=== PATIENT | female | born 1985 | race Caucasian/White ===

== ENCOUNTER → 2023-10-23 | Outpatient (CLI) | payer BC, SELFPAY ==
--- NOTE | 2023-10-23 13:32 | US_ITS ---
ULTRASOUND GUIDED CORE BIOPSY REASON FOR EXAM: Female, 38 years old. ABN MAMM PERTINENT HISTORY: Abnormal mammogram and ultrasound of the right breast. COMPARISON: None. TECHNIQUE: (All elements of maximal sterile barrier technique followed, including US elements as applicable) Upon arrival to the breast imaging department the patient''s identification was confirmed and the RIGHT breast was marked according to time-out protocol. Ultrasound guided core biopsy and clip placement, to include potential risks and complications, was explained in full to the patient. Written and verbal consent were obtained prior to initiation of the procedure. The RIGHT breast was prepped and draped in standard sterile fashion and local anesthesia was obtained with 1% buffered lidocaine. A small dermatotomy was then made to introduce the core biopsy needle. Under ultrasound guidance multiple core samples were obtained with a 13 gauge needle and submitted in formalin for pathology. A titanium clip was then deployed into the biopsy cavity under ultrasound guidance. Upon completion of the procedure hemostasis was obtained and sterile dressing was applied. The patient tolerated the entire procedure without immediate complication and was discharged from the breast imaging department in good condition. IMPRESSION: Ultrasound guided core biopsy of a mass in the RIGHT breast at 2:00 position the breast at 4 cm from the nipple. without complication. On the subsequent mammogram, a tissue clip marker is seen at the biopsy site. The previously seen nodule has decreased in size. Electronically Signed: Kwame Arguello MD at 15:46 EDT , ULTRASOUND GUIDED CORE BIOPSY REASON FOR EXAM: Female, 38 years old. ABN MAMM PERTINENT HISTORY: Abnormal screening mammogram. COMPARISON: None. TECHNIQUE: (All elements of maximal sterile barrier technique followed, including US elements as applicable) Upon arrival to the breast imaging department the patient''s identification was confirmed and the RIGHT breast was marked according to time-out protocol. Ultrasound guided core biopsy and clip placement, to include potential risks and complications, was explained in full to the patient. Written and verbal consent were obtained prior to initiation of the procedure. The RIGHT breast was prepped and draped in standard sterile fashion and local anesthesia was obtained with 1% buffered lidocaine. A small dermatotomy was then made to introduce the core biopsy needle. Under ultrasound guidance multiple core samples were obtained with a gauge needle and submitted in formalin for pathology. A titanium clip was then deployed into the biopsy cavity under ultrasound guidance. Upon completion of the procedure hemostasis was obtained and sterile dressing was applied. The patient tolerated the entire procedure without immediate complication and was discharged from the breast imaging department in good condition. US/US Breast Biopsy 1st Lesion IMPRESSION: Ultrasound guided core biopsy of a mass in the RIGHT breast at 10:00 position of the breast at 7 cm from the nipple. without complication. A tissue clip marker is seen at the biopsy site. Electronically Signed: Kwame Arguello MD at 15:47 EDT ,
--- NOTE | 2023-10-23 14:16 | BR_PTH ---
PATIENT: ZULLY TURK LOC: OPUS U#:[id number] AGE/SX: 38/F ROOM: RE10/23/[address]: Dr. Joselyn Strickland MD : 1985 BED: DIS: 10/23/2023 SPEC #: [id number] RECD: 10/23/23 15:24 STATUS: GOPAL REBalta #: [id number] REBECA: 10/23/23 14:[address]: Joselyn Strickland DEPT: SURGICAL PATHOLOGY RECD BY: Laverne Hickey ENTERED: 10/24/23 07:58 SP TYPE: MAMOPLASTY OTHR DR: Lorie Zarco PA-C Tissues: A - Right breast, NOS B - Left breast, NOS Procedures: Surgery Specimen Level IV HEADER OPERATION: Right breast biopsyx2 PRE-OP DIAGNOSIS: Right breast mass x2 TISSUE SUBMITTED: A. right breast mass 2 o'clock 4cm from the nipple, B. Right breast mass 10 o'clock 7cm from the nipple MICROSCOPIC DIAGNOSIS A. Right breast mass at 2 o'clock, biopsy; Fibroadenoma. B. Right breast mass at 10 o'clock, biopsy; Fibroadenoma. / 10/25/2023 MICROSCOPIC DESCRIPTION Slides are reviewed. GROSS DESCRIPTION A. Received in fixative is one container labeled with the patient's name and designated Right breast mass 2 o'clock biopsy. The specimen consists of multiple irregular fragments of earl-yellow fibroadipose tissue that in aggregate measure 1.5 x 1.5 x 0.1 cm. The specimen is totally submitted in one cassette. B. Received in fixative is one container labeled with the patient's name and designated Right breast mass 10 o'clock biopsy. The specimen consists of multiple elongated fragments of earl-yellow fibroadipose tissue that in aggregate measure 1.5 x 1.0 x 0.1 cm. The specimen is totally submitted in one cassette. / 10/24/2023 TC:5 CPT: 87474p6
--- NOTE | 2023-10-23 14:31 | OP.PCM_ITS ---
Report of Operation Date of Procedure: 10/23/23 Pre-Operative Diagnosis: right breast mass x 2 Post-Operative Diagnosis: same Surgery/Procedure Performed:: US guided right breast biopsy x 2 Surgeon: Joselyn Strickland Type of Anesthesia: Local Specimen's removed: 1. Right breast mass 2:00 4 cm from from the nipple, #2 right breast mass 10:00 7 cm from the nipple Estimated Blood Loss (mL): < 10 cc Description of Procedure: Procedure: Right ultrasound-guided core biopsy Indications: 38 year-old female with hypoechoic nodules x 2 at 2:00 4 cm from the nipple and 10:00 7 cm from the nipple. Risk benefits were discussed the patient and she elected to proceed with ultrasound guided core biopsy with clip placement Description of procedure: Patient was brought into the ultrasound room in the right breast was marked. A timeout was completed verifying correct patient, procedure, site, specially, prior to beginning procedure. The right breast was prepped and draped in usual sterile fashion and using local anesthesia was obtained with 1% lidocaine with epi. Each of the biopsies were done similarly. The lesion was located with the ultrasound. Small incision was made with 11 blade to introduced the mammotome through the skin. Under ultrasound guidance multiple core samples were obtained using then 13-gauge mammotome and sent in [facility] for pathology. The Bard dual ultra-(coil at 2:00 ribbon at 10:00) clip was then deployed into the biopsy cavity under ultrasound guidance and a picture was taken. Upon completion procedure hemostasis was obtained and a Steri-Strip and OpSite were placed. Patient was then taken to the mammography suite for clip verification. The clip was verified. The patient tolerated the procedure well and was discharged from the breast imaging department good condition. complications: none Complications none
[2023-10-23 14:48] VITALS: BP 98/61; PULSE 71; RESP 16; O2SAT 97
[2023-10-23 14:54] VITALS: BP 104/67; PULSE 70; RESP 14; O2SAT 100
[2023-10-23 15:00] VITALS: BP 119/80; PULSE 75; RESP 16; O2SAT 99
[2023-10-23 15:07] VITALS: BP 114/79; PULSE 74; RESP 16; O2SAT 100
== END | disposition home or self-care (01) ==
PROVIDERS: PCP Family Medicine; Referring Provider Surgery; Visit Provider Surgery
DX: D24.1 Benign neoplasm of right breast (principal)
CPT/HCPCS: 19083; 19084; 88305

== ENCOUNTER → 2025-02-11 | Outpatient (CLI) | payer BC, SELFPAY | END | disposition home or self-care (01) | PROVIDERS: PCP Family Medicine; Referring Provider Surgery; Visit Provider Surgery | DX: R19.7 Diarrhea, unspecified (principal) | CPT/HCPCS: 83630; 87177; 87209; 87493; 87506 ==

== ENCOUNTER → 2025-03-11 | Outpatient (CLI) | payer BC, SELFPAY ==
--- NOTE | 2025-03-11 10:05 | BI_ITS ---
EXAM: SCRN MAMM (CAD)W/CHRISTEN BILAT DATE: 03/11/2025 CLINICAL HISTORY: F, Age 39 y/o , SCREENING No family history. Remote left excisional breast biopsy as well as right ultrasound-guided breast biopsies. TECHNIQUE: SCRN MAMM (CAD)W/CHRISTEN BILAT COMPARISON: Prior exam(s) dated October 23, 2023.. FINDINGS: TISSUE DENSITY: The breasts are extremely dense, which lowers the sensitivity of mammography. Bilateral Breast Mammographic Findings: I suspect a 8 mm by 5.3 mm nodule in the upper medial aspect of the right breast. Correlation with ultrasound recommended. Tissue clip markers are seen in the upper lateral aspect of the right breast. BI/SCRN MAMM (CAD)W/CHRISTEN BILAT IMPRESSION: 8 mm x 5.3 mm nodule in the upper medial aspect of the right breast. Targeted sonographic correlation recommended. OVERALL FINAL ASSESSMENT BI-RADS 0: INCOMPLETE - NEED ADDITIONAL IMAGING EVALUATION. RECOMMENDATION: Ultrasound Recommended A letter with findings and recommendations will be mailed to the patient. Reading Location: [place] [address]
== END | disposition home or self-care (01) ==
LOC: OPBI 10:03
PROVIDERS: PCP Family Medicine; Referring Provider Family Medicine; Visit Provider Family Medicine
DX: Z12.31 Encounter for screening mammogram for malignant neoplasm of breast (principal)
CPT/HCPCS: 77063; 77067

== ENCOUNTER → 2025-03-18 | Outpatient (CLI) | payer BC, SELFPAY ==
--- NOTE | 2025-03-18 08:40 | US_ITS ---
PROCEDURE: BREAST LIMITED UNILATERAL 03/18/2025 REASON FOR EXAM: F, Age 39 y/o , ABN MAMM COMPARISON: Prior mammogram dated March 11, 2025.. TECHNIQUE: BREAST LIMITED UNILATERAL FINDINGS: The medial aspect of the right breast was examined with ultrasound. The mammographic abnormality corresponds to an 8 mm x 12 mm x 6 mm hypoechoic lobulated nodule at the 1 o'clock position of the breast at 6 cm from the nipple. Biopsy recommended. US/Breast Limited Unilateral IMPRESSION: 8 mm x 12 mm x 6 mm hypodense hypoechoic lobulated nodule at the 1 o'clock posi tion of the breast at 6 cm from the nipple. Biopsy recommended. BI-RADS 4: SUSPICIOUS RECOMMENDATION: Biopsy Recommended Reading Location: [id number]
== END | disposition home or self-care (01) ==
PROVIDERS: PCP Family Medicine; Referring Provider Family Medicine; Visit Provider Family Medicine
DX: R92.8 Other abnormal and inconclusive findings on diagnostic imaging of breast (principal)
CPT/HCPCS: 76642

== ENCOUNTER 2025-03-24 08:14 | Day surgery (SDC) | payer BC, SELFPAY ==
[2025-03-24] VITALS (8 sets, daily range): BP systolic 99–128; BP diastolic 75–91; PULSE 72–89; RESP 16; TEMP 35.9–36.8; O2SAT 99–100; BMI 26.2
[2025-03-24] MEDS: Lactated Ringers 1,000 ML 15 ML IV (08:30)
[2025-03-24 08:33] LABS: Internal QC Validated? YES +Cl - CLEAR BKGD; Pregnancy, Urine Negative Negative; Record Kit Lot#,Urine Preg 0000962302
--- NOTE | 2025-03-24 08:38 | PCM.PRE.AN2 ---
ASA Classification* ASA Classification ASA Classification: 2 Assessment & Plan Anesthesia* Anesthesia Assessment Anesthesia Assessment: Discussed sedation and/or anesthesia options, risks, benefits, and alternatives with patient/parents/legal guardian/POA. Questions invited. The patient/parents/legal guardian/POA seems to understand and agrees to proceed with anesthesia plan. Reviewed the physical assessment, medical history, allergy history and patient home medications list prior to surgery/procedure/anesthetic and documented any changes. Performed airway and anesthesia risk assessments. Anesthesia Type Anesthesia Type: MAC Anesthesia Focused Assessment* Temperature: 97.7 F Pulse Rate: 89 Blood Pressure: 128/91 Respiratory Rate: 16 Pulse Ox: 99 Oxygen Delivery Method: Room Air Airway Assessment Mouth opens: 2 cm Mallampati Score: III Teeth Condition: Intact Neck Range of motion (ROM): Full ROM Labs Anesthesia Preop lab: CBC WBC 9.0 k/mm3 (4.4-11.0) 04/24/13 12:04/24/13 RBC 4.81 M/mm3 (4.2-5.4) 04/24/13 12:04/24/13 Hgb 14.2 g/dl (12.0-15.0) 04/24/13 12:04/24/13 Hct 42.3 % (37-47) 04/24/13 12:04/24/13 Plt Count 232 K/mm3 (150-450) 04/24/13 12:04/24/13 CHEMISTRY Potassium 3.9 mmol/L (3.5-5.1) 04/24/13 12:04/24/13 Sodium 140 mmol/L (136-145) 04/24/13 12:09 04/24/13 BUN 8 mg/dL (7-18) 04/24/13 12:04/24/13 Creatinine 0.7 mg/dL (0.6-1.0) 04/24/13 12:04/24/13 Glucose 87 mg/dL (70-110) 04/24/13 12:09 04/24/13 COAG Urine Test Negative Negative 03/24/25 08:22 03/24/25 Pre-Assessment Diagnosis/Proposed Procedure Planned Operative Procedure(s): COLONOSCOPY Anesthesia History Anesthesia History - supervisor sleeping bag department: Anesthesia History - supervisor sleeping bag department Hx Hospitalization No 03/23/25 08:54 Any Problems With Anesthesia No 03/23/25 08:54 Cholinesterase deficiency No 03/23/25 08:54 You/Your Family Experience No 03/23/25 08:54 fever (hyperthermia) with Relationship Recent Exposure to Contagious No 03/24/25 08:27 Disease Does patient have nerve No 03/23/25 08:54 stimulator Patient instructed to have device shut off --Does patient have Pacemaker No 03/24/25 08:27 or ICD? When Was Last Pacemaker Check QUESTION #4 FULL TEXT: You/Your Family Experience fever (hyperthermia) with Anesthesia Last Oral Intake Last Oral intake: Last Oral Intake NPO since 20:00 03/24/25 08:27 Meds taken in AM with sips of Yes 03/24/25 08:27 water? Meds patient instructed to zoloft 03/24/25 08:27 take am of surgery PONV PONV - supervisor sleeping bag department: PONV - supervisor sleeping bag department Female Yes 03/23/25 08:54 HX of Motion Sickness Yes 03/23/25 08:54 HX of N/V After Surgery No 03/23/25 08:54 Non-Smoker Yes 03/23/25 08:54 Duration of Surgery greater No 03/23/25 08:54 than 60 minutes Number of Risk Factors 3 03/23/25 08:54 PONV Score Moderate Risk 03/23/25 08:54 Height & Weight Height & Weight: Anesthesia: Height & Weight Height 5 ft 3 in 03/24/25 08:27 Weight: 67 kg 03/24/25 08:27 Body Mass Index (BMI) 26.2 03/24/25 08:27 Respiratory Assessment Respiratory Assessment - supervisor sleeping bag department: Respiratory Tract Infection Hx - supervisor sleeping bag department Hx Respiratory Tract Infection No 03/23/25 08:54 STOP Sleep Apnea STOP Sleep Apnea - supervisor sleeping bag department: STOP Sleep Apnea - supervisor sleeping bag department Hx Hypertension No 03/23/25 08:54 Hx Sleep Apnea No 03/23/25 08:54 CPAP BIPAP Do you snore loudly (louder No 03/23/25 08:54 than talking or can be heard Do you often feel tired/ No 03/23/25 08:54 fatigued/ sleepy during daytime? Has anyone observed you stop No 03/23/25 08:54 breathing during sleep? STOP Results Negative 03/23/25 08:54 QUESTION #5 FULL TEXT : Do you snore loudly (louder than talking or can be heard through closed doors)? Tobacco Use History Tobacco Use History - supervisor sleeping bag department: Tobacco Use History - supervisor sleeping bag department Tobacco Use Smoking Status Never smoker 03/23/25 08:54 Hx Tobacco Use No 03/23/25 08:54 Years Smoking Packs Smoked per Day Smoking Cessation Date was within the last 15 years Hx Smoking Cessation Date Hx Smoking Cessation Counseling Hematologic Medial History Hematologic Hx - supervisor sleeping bag department: Hematologic Medical Hx - bridal consultant Hx of Blood Transfusion No 03/23/25 08:54 Hx of Transfusion in last 3 No 03/23/25 08:54 Months Date of Last Transfusion (if within last 3 months) Ever experience any problems No 03/23/25 08:54 with transfusion(s)? Specify any problems Hx of Preganancy in last 3 No 03/23/25 08:54 Months Nurse Filling Out Transfusion [id number] 03/23/25 08:54 & Questions: Date: 03/23/25 03/23/25 08:54 Time: 08:57 03/23/25 08:54 Patient unable to answer at this time (ie. confused, unrespo /Reproduction History /Reproductive History - supervisor sleeping bag department: /Reproductive Hx- supervisor sleeping bag department Hx Now No 03/23/25 08:54 Gestational Age (in weeks): EDC: Hx Hx Para Hx Section SAB No 03/23/25 08:54 Active Medications Active Medications: Current Medications Generic Name Dose Route Start Last Admin Trade Name Cony PRN Reason Stop Dose Admin Lactated Ringer's 1,000 mls @ 15 mls/hr 03/24/25 08:30 03/24/25 08:30 IV 15 mls/hr .Q48H IMANI Administration PFSH Medical History (Updated 03/23/25 @ 09:00 by Howie Cuenca) Incisional hernia Non-smoker Abnormal mammogram of right breast Depression with anxiety Home Medications ?Medication ?Instructions ?Recorded ?Last Taken ?Type sertraline 25 mg tablet (Zoloft) 25 mg PO DAILY 10/17/23 03/24/25 History cholestyramine 4 gram oral powder 4 g PO DAILY 03/23/25 03/17/25 History (Cholestyramine Light) Allergy/AdvReac Type Severity Reaction Status Date / Time bacitracin (From Neosporin Allergy Intermediate Rash Verified 03/24/25 08:26 ([id number])) neomycin (From Neosporin Allergy Intermediate Rash Verified 03/24/25 08:26 ([id number])) polymyxin B (From Neosporin Allergy Intermediate Rash Verified 03/24/25 08:26 ([id number])) Family History Father Heart disease Hypertension Grandmother Osteoporosis Grandmother Skin cancer Surgical History (Updated 03/23/25 @ 09:00 by Howie Cuenca) History of laparoscopic cholecystectomy History of breast lump/mass excision Social History Smoking Status: Never smoker alcohol intake: never substance use type: does not use Review of Systems (Anesthesia) ROS Narrative System reviewed and no additional complaints, except as documented.
--- NOTE | 2025-03-24 09:25 | H&P.OPEN ---
HPI - General General Date of Service: 03/24/25 HPI Narrative ZULLY TURK, is a 39 F who presents for a diagnostic colonoscopy due to diarrhea. Patient states her diarrhea has improved since the cholestyramine started- patient is using that once a day. Otherwise patient denies any other changes. Office visit 02/11/2025 HPI HPI: 39-year-old female presents due to diarrhea daily. Patient states has increased more recently. Patient denies any GERD symptoms, or upper abdominal pain. Patient did have her gallbladder around 2012 and had the diarrhea and has since then. Patient states has not had a stool study. Patient states she has tried to increase her fiber however did think she got constipated with that unsure the exact amount she had. Patient thinks drinks about 80 ounces of water daily. Patient does have umbilical hernia and says that has occasional discomfort with that that was the site of her previous gallbladder. Denies any family history of colon cancer. [facility] Medical History (Updated 03/23/25 @ 09:00 by Howie Cuenca) Incisional hernia Non-smoker Abnormal mammogram of right breast Depression with anxiety Home Medications ?Medication ?Instructions ?Recorded ?Last Taken ?Type sertraline 25 mg tablet (Zoloft) 25 mg PO DAILY 10/17/23 03/24/25 History cholestyramine 4 gram oral powder 4 g PO DAILY 03/23/25 03/17/25 History (Cholestyramine Light) Allergy/AdvReac Type Severity Reaction Status Date / Time bacitracin (From Neosporin Allergy Intermediate Rash Verified 03/24/25 08:26 ([id number])) neomycin (From Neosporin Allergy Intermediate Rash Verified 03/24/25 08:26 ([id number]-[id number])) polymyxin B (From Neosporin Allergy Intermediate Rash Verified 03/24/25 08:26 ([id number])) Family History Father Heart disease Hypertension Grandmother Osteoporosis Grandmother Skin cancer Surgical History (Updated 03/23/25 @ 09:00 by Howie Cuenca) History of laparoscopic cholecystectomy History of breast lump/mass excision Social History Smoking Status: Never smoker alcohol intake: never substance use type: does not use Past Medical/Surgical History Planned Operation Planned Operative Procedure(s): COLONOSCOPY Previous Hospitalizations/Surgeries Cholinesterase deficiency: No Cardiovascular Hx of Irregular Heartbeat and/or Afib: No Hx Heart Attack: No Hx Congestive Heart Failure: No Hx Hypertension: No Hx Internal Defibrillator: No Hx Pacemaker: No Respiratory Hx Chronic Obstructive Pulmonary Disease (COPD): No Hx Asthma: No Hx Emphysema: No Hx Sleep Apnea: No Do You Snore Loudly (louder than talking or can be heard): No Do You Often Feel Tired/ Fatigued/ Sleepy Dring Daytime?: No Has Anyone Observed You Stop Breathing During Sleep?: No Result (for STOP score): Negative Smoking Status: Never smoker Gastrointestinal Hx Ulcer: No Neurological Hx Seizures: No Hx Multiple Sclerosis: No Hx Parkinson's Disease: No Hx Head/Neck Injury: No Hx Headaches: No Hx Back Injury/Pain: No Reproduction : No Psycho/Social Hx Anxiety: Yes Hx Depression: No Miscellaneous Recent Exposure to Contagious Disease: No Allergies bacitracin (From Neosporin ([id number]-oks-bfzkc)) Allergy (Intermediate, Verified 03/24/25 08:26) Rash neomycin (From Neosporin ([id number]-iya-xhtay)) Allergy (Intermediate, Verified 03/24/25 08:26) Rash polymyxin B (From Neosporin (qrp-quq-[id number])) Allergy (Intermediate, Verified 03/24/25 08:26) Rash Vital Signs Vital Signs Vital Signs: 03/24/25 08:27 03/24/25 08:27 03/24/25 08:39 Temperature 97.7 F L 97.7 F L Temperature Source Temporal Pulse Rate 89 89 Respiratory Rate 16 16 Respiratory Pattern Normal Blood Pressure 128/91 H 128/91 H Blood Pressure Mean 103 Blood Pressure Source Monitor Blood Pressure Position Semi-Fowlers Blood Pressure Location Left Arm Pulse Ox 99 99 Oxygen Delivery Method Room Air Room Air Weight Weight: 147 lb 11.355 oz Body Mass Index (BMI) 26.2 Physical Exam Const alert, oriented x3 and no apparent distress HEENT normocephalic and head/scalp atraumatic Resp normal respiratory effort Cardio regular rate GI soft to palpation and non-tender; Negative for non-distended Palpation: Negative for guarding Extremity no clubbing, cyanosis or edema Skin no rashes or lesions noted Neuro CN's II-XII intact bilaterally Psych mental status grossly normal Assessment & Plan Assessment/Plan (1) Diarrhea: Surgery Risks - Colonoscopy I discussed with the patient the risks of the procedure: Yes Risks Include but are not Limited To: Risks include but are not limited to: Bleeding, perforation requiring further surgery, inability to complete colonoscopy requiring barium enema.
--- NOTE | 2025-03-24 09:30 | COLBX_PTH ---
PATIENT: ZULLY TURK LOC: EN U#:[id number] AGE/SX: 39/F ROOM: RE03/24/[address]: Dr. Joselyn Strickland MD : 1985 BED: DIS: 03/24/2025 SPEC #: [id number] RECD: 03/24/25 11:46 STATUS: GOPAL REBalta #: [id number] REBECA: 03/24/25 09:[address]: Joselyn Strickland DEPT: SURGICAL PATHOLOGY RECD BY: Juancarlos Parish ENTERED: 03/24/25 14:43 SP TYPE: COLON BX OT DR: Lorie Zarco PA-C Tissues: A - COLON BIOPSY Procedures: Surgery Specimen Level IV HEADER OPERATION: Colonoscopy, biopsy PRE-OP DIAGNOSIS: Diarrhea TISSUE SUBMITTED: A- Random colon biopsy MICROSCOPIC DIAGNOSIS A. Colon, random biopsy: No specific pathologic change. The histologic features of microscopic colitis are not demonstrated. MICROSCOPIC DESCRIPTION Slides are reviewed. GROSS DESCRIPTION A. Received in fixative is one container labeled with the patient's name and designated Random colon biopsy. The specimen consists of two irregular fragments of light earl soft tissue that measure 0.4 and 0.5 cm. The specimen is totally submitted in one cassette. MS 03/24/2025 CPT:59629
--- NOTE | 2025-03-24 10:24 | OP.PROVAT_ITS ---
03/24/2025 [facility] Re : Colonoscopy procedure for Linda Zarco This procedure was performed on Monday, March 24, 2025. My impressions and recommendations are as follows: Impressions : - The examination was otherwise normal on direct and retroflexion views. - The examined portion of the ileum was normal. - Two random biopsies were obtained. Recommendations : - Discharge patient to home. - Resume previous diet. - Continue present medications. - Await pathology results. - Repeat colonoscopy in 10 years for screening purposes. My findings are described in the full procedure note, which is enclosed. If I can be of further assistance, please feel free to contact me at Doctor phone number(s): , Work: . Sincerely, MD Joselyn Devries MD 03/24/2025 10:23:40 AM This report has been signed electronically.
--- NOTE | 2025-03-24 10:24 | OP.COLON_ITS ---
Patient Name: Linda Gibbons Procedure Date: 03/24/2025 9:59 AM Date of : 1985 Age: 39 Procedure: Colonoscopy Indications: Chronic diarrhea Providers: Joselyn Strickland MD Referring MD: Lorie Zarco Medicines: Monitored Anesthesia Care Patient Profile: This is a 39 year old female. Last Colonoscopy: none. The patient's first colonoscopy is today. Complications: No immediate complications. Procedure: Pre-Anesthesia Assessment: - Prior to the procedure, a History and Physical was performed, and patient medications and allergies were reviewed. The patient's tolerance of previous anesthesia was also reviewed. The risks and benefits of the procedure and the sedation options and risks were discussed with the patient. All questions were answered, and informed consent was obtained. Prior Anticoagulants: The patient has taken no anticoagulant or antiplatelet agents. ASA Grade Assessment: Per anesthesia. After reviewing the risks and benefits, the patient was deemed in satisfactory condition to undergo the procedure. After I obtained informed consent, the scope was passed under direct vision. Throughout the procedure, the patient's blood pressure, pulse, and oxygen saturations were monitored continuously. The Colonoscope was introduced through the anus and advanced to the ileocecal valve. The colonoscopy was performed without difficulty. The patient tolerated the procedure well. The quality of the bowel preparation was good. Scope In: 10:05:57 AM Scope Withdrawal Time 0 hours 9 minutes 50 seconds Scope Out: 10:18:49 AM Total Procedure Duration Time 0 hours 12 minutes 52 seconds Findings: The perianal and digital rectal examinations were normal. Two random biopsies were obtained with cold forceps for histology. The exam was otherwise without abnormality on direct and retroflexion views. The terminal ileum appeared normal. Impression: - The examination was otherwise normal on direct and retroflexion views. - The examined portion of the ileum was normal. - Two random biopsies were obtained. Recommendation: - Discharge patient to home. - Resume previous diet. - Continue present medications. - Await pathology results. - Repeat colonoscopy in 10 years for screening purposes. Procedure Code(s): --- Professional --- 62776, Colonoscopy, flexible; with biopsy, single or multiple Diagnosis Code(s): --- Professional --- K52.9, Noninfective gastroenteritis and colitis, unspecified CPT copyright 2021 [employer]. All rights reserved. The codes documented in this report are preliminary and upon certified medical records coder review may be revised to meet current compliance requirements. MD Joselyn Devries MD 03/24/2025 10:23:40 AM This report has been signed electronically. Number of Addenda: 0 Note Initiated On: 03/24/2025 9:59 AM
--- NOTE | 2025-03-24 10:28 | PCM.POST.ANE ---
Anesthesia: Postop Eval I Current Vital Signs Temperature: 97 F Pulse Rate: 79 Blood Pressure: 102/75 Respiratory Rate: 16 Pulse Ox: 100 Oxygen Delivery Method: Room Air Assessment Airway patent: Yes Spontaneous unlabored respirations: Yes Mental status: Awake and Calm nausea: No Vomiting: No Anesthesia Complication: No Fluid Hydration Crystalloid volume administer (ml): 500 Total IV fluid infused: 500 Progress Note Anesthesia document: Postop Eval 1 completed: Yes
--- NOTE | 2025-03-24 13:04 | PCM.POSTANE2 ---
Anesthesia Postop Eval I Sum Postop Eval Completion status Anesthesia document: Postop Eval 1 completed: Yes Anesthesia Postop Eval I Summary Anesthesia Postop Eval I Summary: Anesthesia Postop Eval I: Assessment Summary Airway patent Yes 03/24/25 10:28 [email or web address] Spontaneous unlabored Yes 03/24/25 10:28 [email or web address] respirations Mental status Awake,Calm 03/24/25 10:28 [email or web address] nausea No 03/24/25 10:28 [email or web address] Vomiting No 03/24/25 10:28 [email or web address] Anesthesia Postop Eval I: Fluid Summary Crystalloid volume administer 500 03/24/25 10:28 [email or web address] (ml) Colloids volume administered ( ml) Blood Product volume administered (ml) Total IV fluid infused 500 03/24/25 10:28 [email or web address] Anesthesia Postop Eval I: Summary Notes Anesthesia Complication No 03/24/25 10:28 [email or web address] Anesthesia Complication Comment: Post-operative progress note Anesthesia: Postop Eval II Evaluation Mental status: Awake Pain Level: 0 nausea: No Vomiting: No Complications Anesthesia Complication: No
== END 2025-03-24 11:15 | disposition home or self-care (01) ==
LOC: EN 08:15 → AC 08:16
PROVIDERS: Anesthesiology; PCP Family Medicine; Referring Provider Family Medicine; Visit Provider Surgery
PROC: 0DJD8ZZ Inspection of Lower Intestinal Tract, Via Natural or Artificial Opening Endoscopic (ICD-10-PCS; CPT 45378; principal; 2025-03-24 09:25)
DX: K52.9 Noninfective gastroenteritis and colitis, unspecified (principal); Z90.49 Acquired absence of other specified parts of digestive tract
CPT/HCPCS: 45380; 81025; 88305; J2405

== ENCOUNTER → 2025-03-30 | Outpatient (CLI) | payer BC, SELFPAY ==
--- NOTE | 2025-03-30 09:50 | BRBX_PTH ---
PATIENT: ZULLY TURK LOC: [facility] U#:[id number] AGE/SX: 39/F ROOM: RE03/30/[address]: Dr. Joselyn Strickland MD : 1985 BED: DIS: 03/30/2025 SPEC #: [id number] RECD: 03/30/25 10:25 STATUS: GOPAL ANITA #: [id number] REBECA: 03/30/25 09:[address]: Joselyn Strickland DEPT: SURGICAL PATHOLOGY RECD BY: Juancarlos Parish ENTERED: 03/30/25 14:03 SP TYPE: BREAST BX OTHR DR: Lorie Zarco PA-C Tissues: A - Right breast, NOS Procedures: Surgery Specimen Level V HEADER OPERATION: Right breast biopsy PRE-OP DIAGNOSIS: Right breast biopsy TISSUE SUBMITTED: A- Right breast nodule - 1:00, 6cm from nipple MICROSCOPIC DIAGNOSIS A. Breast, right, nodule at 1:00, 6CMFN, core biopsy: - Fibroadenoma. - No malignant change is seen in these sections. MICROSCOPIC DESCRIPTION Slides are reviewed. GROSS DESCRIPTION A. Received in formalin labeled with the patient's name and date of . Designated as R breast tissue nodule are 3 earl-white tissue cores, 0.8 cm to 1.6 cm in length by 0.1 cm in diameter. Entirely submitted in 1 cassette. Cold ischemic time: <1-minuteFormalin fixation time: 9 hours 40 minutes [place] 03/30/2025 [id number]
== END | disposition home or self-care (01) ==
LOC: LABSPEC 12:11
PROVIDERS: PCP Family Medicine; Referring Provider Surgery; Visit Provider Surgery
DX: D24.1 Benign neoplasm of right breast (principal)
CPT/HCPCS: 88305; 88307